=== PATIENT | male | born 1960 | race Caucasian/White ===

== ENCOUNTER 2024-12-24 07:00 | Emergency (ER) | payer MEDICARE ==
[~2024-12-24] VITALS: Ht 170.2 cm; Wt 79.4 kg
== END 2024-12-24 11:19 | disposition left against medical advice (07) ==
LOC: ER 07:00
DX: M25.532 Pain in left wrist (principal); Z53.29 Procedure and treatment not carried out because of patient's decision for other reasons
CPT/HCPCS: 73110; 99283-25